=== PATIENT | male | born 1990 | race Caucasian/White ===

== ENCOUNTER 2018-09-05 14:20 | Emergency (ER) | payer OTHER ==
[~2018-09-05] VITALS: Ht 180.3 cm; Wt 93.0 kg
[~2018-09-05 14:20] MED LIST: ALEVE220 MG PO; NORCO 5-325 TA1 EACH PO; NORFLEX100 MG PO; PENICILLIN V P500 MG PO
[2018-09-05] MEDS ORDERED: IBUPROFEN 800800 M1 PO (15:26)
[2018-09-05] MEDS ORDERED: AMOXICILLIN 50500 MG PO (15:26)
[2018-09-05] MEDS ORDERED: ONDANSETRON HCL4 M2 PO (15:26)
[2018-09-05] MEDS ORDERED: NORCO 5-325 TA1 EACH PO (15:26)
[2018-09-05 15:34] VITALS: BP 139/82
== END 2018-09-05 15:35 | disposition home or self-care (01) ==
LOC: M.ERS 14:20
DX: S02.5XXA Fracture of tooth (traumatic), initial encounter for closed fracture (principal); Z98.890 Other specified postprocedural states; Z88.1 Allergy status to other antibiotic agents; X58.XXXA Exposure to other specified factors, initial encounter; Y93.89 Activity, other specified; Y92.89 Other specified places as the place of occurrence of the external cause; Y99.8 Other external cause status